=== PATIENT | female | born 1985 | race Asian ===

== ENCOUNTER 2022-01-15 01:06 | Inpatient (IN) | payer BC ==
[2022-01-15] MEDS ORDERED: Sodium Chloride 0.9% 10 ML Syringe FLUSH PRN (01:28)
[2022-01-15] MEDS ORDERED: Ampicillin 2 GM in Sodium Chloride 0.9% 100 ML IV ONE (01:38)
[2022-01-15] MEDS ORDERED: Betamethasone Acetate/Betamethasone Sod Phosphate 30 MG/5 ML MDV IM ONE (01:40)
[2022-01-15] MEDS: Lactated Ringers 1,000 ML IV ONE ×2 (02:02→02:19)
[2022-01-15] MEDS ORDERED: Metoclopramide 10 MG/2 ML SDV IVPUSH ONE (02:20)
[2022-01-15] MEDS ORDERED: Citric Acid/Sodium Citrate Solution 30 ML Cup PO ONE (02:21)
[2022-01-15] MEDS ORDERED: Ondansetron 4 MG/2 ML SDV ONE (02:26)
[2022-01-15] MEDS ORDERED: Morphine PF 10 MG/10 ML SDV ONE (02:26)
[2022-01-15] MEDS ORDERED: ceFAZolin 1 GM Vial ONE (02:26)
[2022-01-15] MEDS ORDERED: Oxytocin 10 Units/1 ML SDV ONE ×2 (02:26→03:53)
[2022-01-15] MEDS ORDERED: Propofol 200 MG/20 ML SDV ONE (02:27)
[2022-01-15] MEDS ORDERED: fentaNYL 250 MCG/5 ML SDV ONE (02:40)
[2022-01-15] MEDS ORDERED: ePHEDrine 50 MG/ML SDV ONE (02:44)
[2022-01-15] MEDS ORDERED: Lactated Ringers 1,000 ML ONE ×2 (03:53)
[2022-01-15] MEDS ORDERED: HYDROmorphone 0.5 MG/0.5 ML Syringe IVPUSH PRN (04:02)
[2022-01-15] MEDS ORDERED: fentaNYL 100 MCG/2 ML SDV IVPUSH PRN (04:02)
[2022-01-15] MEDS ORDERED: Ondansetron 4 MG/2 ML SDV IVPUSH PRN (04:02)
[2022-01-15] MEDS ORDERED: Ondansetron 4 MG Tab.DIS PO PRN (05:45)
[2022-01-15] MEDS ORDERED: ePHEDrine 50 MG/ML SDV IVPUSH PRN (05:45)
[2022-01-15] MEDS ORDERED: Naloxone 0.4 MG/ML SDV IVPUSH PRN (05:45)
[2022-01-15] MEDS ORDERED: Magnesium Hydroxide 400 MG/5 ML Susp 30 ML Cup PO PRN (05:45)
[2022-01-15] MEDS ORDERED: Oxytocin/Lactated Ringers 10 UNIT/1,000 ML BAG IV SCH (05:45)
[2022-01-15] MEDS ORDERED: Dextrose 5%-Lactated Ringers 1,000 ML IV SCH (05:45)
[2022-01-15] MEDS ORDERED: Acetaminophen/oxyCODONE 325-5 MG Tab PO PRN (05:45)
[2022-01-15] MEDS ORDERED: diphenhydrAMINE 50 MG/ML SDV IVPUSH PRN (05:45)
[2022-01-15] MEDS ORDERED: Ampicillin 1 GM in Sodium Chloride 0.9% 100 ML IV SCH (06:00)
[2022-01-15] MEDS: Acetaminophen/oxyCODONE 325-5 MG Tab PO PRN ×5 (06:07→23:23)
[2022-01-15] MEDS: Docusate Sodium 100 MG Cap PO SCH ×2 (08:58→22:14)
[2022-01-15] MEDS: Prenatal Multivitamin with Calcium/Folic Acid/Iron Tab PO SCH (08:58)
[2022-01-15] MEDS ORDERED: Ketorolac 15 MG/ML SDV IVPUSH SCH (09:00)
[2022-01-15] MEDS ORDERED: Sodium Chloride 0.9% 10 ML Syringe FLUSH SCH (09:00)
[2022-01-15] MEDS ORDERED: HYDROmorphone 1 MG/ML Syringe IVPUSH ONE (11:45)
[2022-01-15] MEDS: Ketorolac 30 MG/ML SDV IVPUSH SCH ×2 (16:09→22:13)
[2022-01-15] MEDS: Simethicone 80 MG Tab.Chew PO SCH (22:14)
[2022-01-16] MEDS ORDERED: Betamethasone Acetate/Betamethasone Sod Phosphate 30 MG/5 ML MDV IM ONE (02:00)
[2022-01-16] MEDS: Ibuprofen 600 MG Tab PO PRN ×2 (05:15→12:34)
[2022-01-16] MEDS: Acetaminophen/oxyCODONE 325-5 MG Tab PO PRN ×2 (05:16→10:08)
[2022-01-16] MEDS: Docusate Sodium 100 MG Cap PO SCH (08:50)
[2022-01-16] MEDS: Prenatal Multivitamin with Calcium/Folic Acid/Iron Tab PO SCH (08:50)
[2022-01-16] MEDS: Simethicone 80 MG Tab.Chew PO SCH ×3 (08:51→17:18)
== END 2022-01-16 17:55 | DRG 540 ==
LOC: JD.OB 01:06 → JD.OBCHECK 01:06 → JD.OB 02:16 → OBSVTOIN 02:35 → JD.OB 02:36
PROVIDERS: ADMIT Obstetrics & Gynecology; ATTEND Obstetrics & Gynecology
PROC: 10D00Z1 Extraction of Products of Conception, Low, Open Approach (ICD-10-PCS; principal; 2022-01-15)
DX: O67.9 Intrapartum hemorrhage, unspecified (principal); Z37.0 Single live birth; O76 Abnormality in fetal heart rate and rhythm complicating labor and delivery; O60.14X0 Preterm labor third trimester with preterm delivery third trimester, not applicable or unspecified; Z3A.34 34 weeks gestation of pregnancy
CPT/HCPCS: 01961; 36415; 59025; 74018; 85025; 86592; 86850; 86870; 86900; 86901; 87653; 99140; A9270-GY; J0290; J0690; J0702; J1170; J1885; J2274; J2405; J2590; J2704; J2765; J3010; J7120; J7121